=== PATIENT | male | born 1985 | race Caucasian/White ===

== ENCOUNTER 2020-02-07 07:17 | Day surgery (SDC) | payer OTHER ==
[2020-02-07] MEDS ORDERED: ONDANSETRON 4 MG/2 ML VIAL IVPUSH PRN (08:04)
--- NOTE | 2020-02-07 08:06 | HP ---
CHIEF COMPLAINT: Major depression PCP: Dr. Feliberto Alcala, [place] Primary Psychiatrist: Dr. Eris Munguia, [place] HISTORY OF PRESENT ILLNESS: This is a 34 year-old male with a PMH significant for depression, OCD, and seizure disorder. Patient first had ECT in April 2019. He presents today for ECT. 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 Smoking: vapes nicotine Alcohol: occasional Drugs: no Allergies codeine Adverse Reaction (Intermediate, Verified 02/04/20 11:51) Itching HOME MEDICATIONS: Home Medications Medication Instructions Recorded Buprenorphine HCl [Subutex -] 8 mg SL DAILY 02/04/20 Cholecalciferol (Vitamin D3) 2,000 unit PO DAILY 02/04/20 [Vitamin D3] Dextroamphetamine/Amphetamine 10 mg PO DAILY PRN 02/04/20 [Adderall 10 mg Tablet] Diazepam 30 mg PO HS 02/04/20 Diphenhydramine HCl [Benadryl -] 25 mg PO HS PRN 02/04/20 Lamotrigine [Lamictal Xr] 100 mg PO BID 02/04/20 Levomefolate/Algal Oil 1 each PO BID 02/04/20 [Deplin-Algal Oil 15 mg Capsule] Levothyroxine [Synthroid -] 88 mcg PO DAILY 02/04/20 [place] Carbonate [Lithobid] 300 mg PO DAILY 02/04/20 Mirtazapine 45 mg PO HS 02/04/20 Multivit-Mins/Iron/Folic/Lycop 1 each PO DAILY 02/04/20 [Centrum Men's Tablet] REVIEW OF SYSTEMS CONSTITUTIONAL: Absent: fever, chills, diaphoresis, generalized weakness, malaise, loss of appetite, weight change HEENT: Absent: rhinorrhea, nasal congestion, throat pain, throat swelling, difficulty swallowing, mouth swelling, ear pain, eye pain, visual changes CARDIOVASCULAR: Absent: chest pain, syncope, palpitations, irregular heart rate, lightheadedness, peripheral edema RESPIRATORY: Absent: cough, shortness of breath, dyspnea with exertion, orthopnea, wheezing, stridor, hemoptysis GASTROINTESTINAL: Absent: abdominal pain, abdominal distension, nausea, vomiting, diarrhea, constipation, melena, hematochezia GENITOURINARY: Absent: dysuria, frequency, urgency, hesitancy, hematuria, flank pain, genital pain MUSCULOSKELETAL: Absent: myalgia, arthralgia, joint swelling, back pain, neck pain SKIN: Absent: rash, itching, pallor HEMATOLOGIC/IMMUNOLOGIC: Absent: easy bleeding, easy bruising, lymphadenopathy, frequent infections ENDOCRINE: Absent: unexplained weight gain, unexplained weight loss, heat intolerance, cold intolerance NEUROLOGIC: Absent: headache, focal weakness or paresthesias, dizziness, unsteady gait, seizure, mental status changes, bladder or bowel incontinence PHYSICAL EXAMINATION Vital Signs Temperature 98.2 F 02/07/20 09:50 Pulse Rate 94 H 02/07/20 10:25 Respiratory Rate 16 02/07/20 10:25 Blood Pressure 129/92 02/07/20 10:25 O2 Sat by Pulse Oximetry (%) 96 02/07/20 10:20 GENERAL: Awake, alert, and fully oriented, in no acute distress. HEAD: Normal with no signs of trauma. EYES: Pupils equal, round and reactive to light, sclera anicteric, conjunctiva clear. LUNGS: Breath sounds equal, clear to auscultation bilaterally. No wheezes, and n o crackles. No accessory muscle use. HEART: Regular rate and rhythm, normal S1 and S2 ABDOMEN: Soft, nontender, not distended MUSCULOSKELETAL: Normal range of motion at all joints. No bony deformities or tenderness. No CVA tenderness. UPPER EXTREMITIES: 2+ pulses, warm, well-perfused. No cyanosis. No clubbing. No peripheral edema. LOWER EXTREMITIES: 2+ pulses, warm, well-perfused. No calf tenderness. No peripheral edema. NEUROLOGICAL: Cranial nerves II-XII intact. Normal speech. ASSESSMENT/PLAN: This is a 34 year-old male with a PMH significant for depression, OCD, and seizure disorder. Patient first had ECT in April 2019. He presents today for ECT. Cardiac --no cardiac history --Revised Cardiac Risk Index for Pre-Operative Risk: 0 points, 0.4% risk of major cardiac event Pulmonary --no pulmonary history Neurological --no neurological or neurosurgical history; no history of trauma Anesthesia --no reported problems with anesthesia ECT is a low risk procedure. The relative benefits of the planned procedure outweigh the relative risks for this patient at this time. Visit type - Emergency Visit Emergency Visit: No - New Patient This patient is new to me today: Yes Date on this admission: 02/07/20 - Critical Care Critical Care patient: No
[2020-02-07 08:14] VITALS: BMI 39.5
[2020-02-07] MEDS ORDERED: LACTATED RINGERS SOLUTION 1,000 ML IV SCH (08:15)
[2020-02-07] MEDS ORDERED: KETAMINE HCL 500 MG/10 ML VIAL ONE (08:45)
[2020-02-07] MEDS ORDERED: PROPOFOL 20 ML ONE ×2 (08:55)
[2020-02-07] MEDS ORDERED: SUCCINYLCHOLINE CHLORIDE 200 MG/10 ML SYRINGE ONE (08:56)
[2020-02-07] MEDS ORDERED: ONDANSETRON 4 MG/2 ML VIAL ONE (08:59)
[2020-02-07 11:41] VITALS: PULSE 94; TEMP 98.2
[2020-02-07 11:44] VITALS: BP 129/92
== END 2020-02-07 10:25 | disposition home or self-care (01) ==
LOC: FECT 07:17
PROVIDERS: ATTEND Psychiatry & Neurology Psychiatry
PROC: GZB4ZZZ Other Electroconvulsive Therapy (ICD-10-PCS; principal; 2020-02-07 11:00)
DX: F32.9 Major depressive disorder, single episode, unspecified (principal)
CPT/HCPCS: 90870; 94760

== ENCOUNTER 2020-02-08 07:25 | Day surgery (SDC) | payer OTHER ==
[2020-02-04 12:48] VITALS: BMI 38.7
--- OUTSIDE RECORDS SUMMARY | 2020-02-08 07:28 | XMS ---
:1985 Author Organization [facility] Support Name Relationship Address Phone UE Unavailable Unavailable Unavailable JENI ARROYO FATHER [address] [facility] [place] [address] Re-disclosure Warning The records that you are about to access may contain information from federally- assisted alcohol or drug abuse programs. If such information is present, then the following federally mandated warning applies: This information has been disclosed to you from records protected by federal confidentiality rules (42 CFR part 2). The federal rules prohibit you from making any further disclosure of this information unless further disclosure is expressly permitted by the written consent of the person to whom it pertains or as otherwise permitted by 42 CFR part 2. A general authorization for the release of medical or other information is NOT sufficient for this purpose. The Federal rules restrict any use of the information to criminally investigate or prosecute any alcohol or drug abuse patient.The records that you are about to access may contain highly sensitive health information, the redisclosure of which is protected by Article 27-F of the [facility] Public Health law. If you continue you may haveaccess to information: Regarding HIV / AIDS; Provided by facilities licensed or operated by the [facility] Office of Mental Health; or Provided by the [facility] Office for People With Developmental Disabilities. If such information is present, then the following [facility] mandated warning applies: This information has been disclosed to you from confidential records which are protected by state law. State law prohibits you from making any further disclosure of this information without the specific written consent of the person to whom it pertains, or as otherwise permitted by law. Any unauthorized further disclosure in violation of state law may result in a fine or skilled nursing sentence or both. A general authorization for the release of medical or other information is NOT sufficient authorization for further disclosure. Allergies and Adverse Reactions Type Description Substance Reaction Status Data Source(s ) NO KNOWN ALLERGIES [facility]IES [facility] Encounters Encounter Providers Location Date Indications Data Source(s ) Outpatient 01/31/2020 10:17:00 [facility] ([facility] Outpatient 01/30/2020 10:28:00 [facility] Outpatient 10/11/2019 12:08:00 [facility] Outpatient 10/10/2019 10:55:00 [facility] Outpatient 08/26/2019 06:57:00 [facility] Outpatient 06/16/2019 08:07:00 [facility]) Outpatient 06/15/2019 08:29:00 [facility]) Insurance Providers Payer name Policy type Policy ID Covered Covered libertarian's Policy P misti / Coverage libertarian ID relationship to [employer] ormation type ziegler MVP EXCHANGE [id number] PLAN
[2020-02-08] MEDS ORDERED: KETAMINE HCL 500 MG/10 ML VIAL ONE (08:44)
[2020-02-08] MEDS ORDERED: PROPOFOL 20 ML ONE (08:46)
[2020-02-08] MEDS ORDERED: ONDANSETRON 4 MG/2 ML VIAL ONE (08:46)
[2020-02-08] MEDS ORDERED: KETOROLAC TROMETHAMINE 30 MG/1 ML VIAL ONE (09:04)
[2020-02-08 09:36] VITALS: TEMP 98.1
[2020-02-08 10:06] VITALS: BP 126/74; PULSE 72
== END 2020-02-08 10:07 | disposition home or self-care (01) ==
LOC: FECT 07:25
PROVIDERS: ATTEND Psychiatry & Neurology Psychiatry
PROC: GZB4ZZZ Other Electroconvulsive Therapy (ICD-10-PCS; principal; 2020-02-08 10:00)
DX: F32.9 Major depressive disorder, single episode, unspecified (principal)
CPT/HCPCS: 90870; 94760; U0003

== ENCOUNTER 2020-02-14 08:21 | Emergency (ER) | payer OTHER ==
[2020-02-14] MEDS ORDERED: ONDANSETRON *ODT* 4 MG TABLET SL ONE (08:31)
[2020-02-14] MEDS ORDERED: MAG HYDROX/AL HYDROX/SIMETH 30 ML UNIT-DOSE CUP PO ONE (08:31)
--- NOTE | 2020-02-14 08:31 | PDOC ---
History of Present Illness - General Chief Complaint: Pain Stated Complaint: ABD PAIN Time Seen by Provider: 02/14/20 08:24 History Source: Patient Exam Limitations: No Limitations - History of Present Illness Initial Comments: 02/14/20 08:30 HPI 34 YOM PMH significant for depression, OCD, and seizure disorder presenting with abdominal gas pain beginning this morning when he woke up ~7AM. He states it feels like sharp, mid abdominal pain with gas. Nonradiating. Associated with nausea. no vomiting or diarrhea or BM changes or bloody stools, fevers or chills. He states he has similar type of pain regularly due to gas and he usually wakes up with abdominal discomfort, dizziness and headache, which he attributes to his medications. He currently states his symptoms are improving. He was preparing for ECT treatment at , but due to his c/o abdominal gas/pain, he was referred to the ED for evaluation. Denies fever, chills, chest pain, SOB, palpitation, dizziness, weakness, V, D, bladder and bowel problems, focal weakness/paresthesias, leg swelling/pain, rash. No sick contacts or travel. No new changes in medications. No suspicious food intake Allergies: codeine Past Medical History/PSH: as above Social history: Lives with family. +ecigs, occ ETOH. no drug use Meds: as documented in EMR Family history: noncontributory Review of systems Constitutional: no fevers or chills. No weakness HEENT: no headache or dizziness. No congestion. No visual/hearing disturbances. CVS: no cp or syncope. Resp: no sob. No cough. Gastrointestinal: +abdominal pain, nausea, No vomiting, no diarrhea. no bloody stools Genitourinary: no urinary sx, hematuria. no frequency or urgency. MUSCULOSKELETAL: No joint pain and swelling. No neck or back pain. SKIN: no redness or skin changes, no discharge, no rash. No wounds. Hematologic: no easy bruising/bleeding. NEUROLOGIC: No headache, dizziness, LOC or altered mental status. No weakness, numbness or tingling. Psych: no anxiety or depression Allergic/Immunologic: +med allergies All other systems reviewed and negative, or as documented in HPI. Physical exam General: Well appearing, awake and alert, NAD. HEENT: NCAT, PERRL, EOMI, clear conjunctiva, anicteric, moist mucus membranes, clear oropharynx, no oral lesions.. Neck: neck supple, FROM Resp: CTAB, normal and even respirations, no respiratory distress CVS: RRR, no murmurs, 2+ peripheral pulses throughout, no peripheral edema Abdomen: soft, nondistended, no rebound or guarding. +mild epigastric TTP. no mcburney's point tenderness, no Jovel's sign. Back: nontender, normal inspection and ROM MSK: no edema, GARAY x4, ROM intact. No clubbing or cyanosis. normal bulk and tone. Neuro: alert, oriented appropriately; no focal neurologic deficits Psych: Calm and cooperative Skin: warm and well perfused, cap refill <2 sec, normal color, no rash or skin discoloration. 02/14/20 08:34 Past History - Medical History Allergies/Adverse Reactions: Allergies Allergy/AdvReac Type Severity Reaction Status Date / Time codeine AdvReac Severe ITCHING/RED Verified 02/08/20 07:53 NESS Home Medications: Ambulatory Orders Buprenorphine HCl [Subutex -] 8 mg SL DAILY 02/04/20 Cholecalciferol (Vitamin D3) [Vitamin D3] 2,000 unit PO DAILY 02/04/20 Dextroamphetamine/Amphetamine [Adderall 10 mg Tablet] 10 mg PO DAILY PRN 02/04/20 Diazepam 30 mg PO HS 02/04/20 Diphenhydramine HCl [Benadryl -] 25 mg PO HS PRN 02/04/20 Lamotrigine [Lamictal Xr] 100 mg PO BID 02/04/20 Levomefolate/Algal Oil [Deplin-Algal Oil 15 mg Capsule] 1 each PO BID 02/04/20 Levothyroxine [Synthroid -] 88 mcg PO DAILY 02/04/20 [place] Carbonate [Lithobid] 300 mg PO DAILY 02/04/20 Mirtazapine 45 mg PO HS 02/04/20 Multivit-Mins/Iron/Folic/Lycop [Centrum Men's Tablet] 1 each PO DAILY 02/04/20 Cancer: No Cardiac Disorders: No Diabetes: No Seizures: No Thyroid Disease: Yes - Psycho-Social/Smoking History Smoking History: Former smoker Have you smoked in the past 12 months: No If you are a former smoker, when did you quit?: X 6 TO 7 YRS AGO Medical Decision Making - Medical Decision Making 02/14/20 08:39 Vital Signs Temp Pulse Resp BP Pulse Ox 98.9 F 96 H 20 141/96 98 02/14/20 08:22 02/14/20 08:22 02/14/20 08:22 02/14/20 08:22 02/14/20 08:22 vitals reviewed, wnl. no fever, no systemic sx. DDx abdominal pain: Renal colic, biliary colic, metabolic/electrolyte derangements. GERD, PUD, esophageal spasm, pancreatitis, hepatitis, constipation, colitis, gastroenteritis, cholecystitis, UTI, pyelonephritis, ileus, SBO, medication side effect, hernia, appendicitis, diverticulitis, mesenteric ischemia. msk strain, mesenteric adenitis, psoas abscess. - he has no lower quadrant tenderness. doubt appy or diverticulitis. no jovel's sign to suggest biliary or cholecystitis he has no peritoneal findings normal BM so unlikely obstruction or gastroenteritis. no e/o GIB. appears well, nontoxic, well hydrated. The patient appears comfortable and states that pain is improved. Given medications maalox and zofran, with clinical improvement. Tolerating oral intake. Vital signs reviewed and are normal. On repeat physical exam, the abdomen is soft and nontender, no suggestive findings for acute abdominal process at this time. The patient was advised that even though there is no evidence of a surgical emergency at this time, or early in a disease course and that if there is additional pain they are to return for repeat evaluation. The patient stated understanding of this, has decision making capacity and is discharged in stable condition. The patient was instructed to return to the emergency department for re-evaluation in 8-12 hours and sooner if they feel worse in any way. 02/14/20 08:40 02/14/20 08:46 Discharge - Discharge Information Problems reviewed: Yes Clinical Impression/Diagnosis: Abdominal pain, epigastric Condition: Improved Disposition: HOME - Admission No - Follow up/Referral Referrals: [facility] [place] [Provider Group] [facility] [Provider Group] - Patient Discharge Instructions Patient Printed Discharge Instructions: DI for Abdominal Pain-Adult Additional Instructions: Please return to the emergency department immediately should you feel worse in any way or have any of the following symptoms: increasing or different abdominal pain, persistent vomiting, fevers or shaking chills. Please return to the emergency department for a recheck in 8-12 hours if the pain is persistent or worse so we can re-evaluate you and ensure that you are not developing a problem that would require surgery or hospitalization. - Post Discharge Activity
--- OUTSIDE RECORDS SUMMARY | 2020-02-14 08:34 | XMS ---
:1985 Author Organization [facility] Support Name Relationship Address Phone UE Unavailable Unavailable Unavailable JENI ARROYO FATHER [address] [facility] [place] [address] Re-disclosure Warning The records that you are [...] is protected by Article 27-F of the [facility] Public Health law. If you continue you may haveaccess to information: Regarding HIV / AIDS; Provided by facilities licensed or operated by the [facility] Office of Mental Health; or Provided by the [facility] Office for People With Developmental Disabilities. If such information is present, then the following [facility] mandated warning applies: This information has [...] law may result in a fine or custodial sentence or both. A general authorization for the release of medical or other information is NOT sufficient authorization for further disclosure. Allergies and Adverse Reactions Type Description Substance Reaction Status Data Source(s ) NO KNOWN ALLERGIES [facility] Encounters Encounter Providers Location Date Indications Data [...] [employer] Inf ormation type ziegler MVP EXCHANGE [id number] PLAN Results ID Date Data Source [id number] 02/08/2020 09:56:00 AM EDT [facility] Name Value Range Interpretation Description Data Sup porting Code Source(s) Document(s ) SARS [facility] coronavirus 2 RNA This lab was ordered by YESENIA HAWKINS and reported by [facility]. ID Date Data Source [id number] 02/05/2020 11:50:00 AM EDT [facility] Name Value Range Interpretation Description Data Sup porting Code Source(s) Document(s ) SARS [facility] coronavirus 2 RNA This lab was ordered by YESENIA HAWKINS and reported by [facility]. Procedure
[2020-02-14] MEDS ORDERED: MAG HYDROX/AL HYDROX/SIMETH 30 ML UNIT-DOSE CUP ONE (08:37)
[2020-02-14] MEDS ORDERED: ONDANSETRON *ODT* 4 MG TABLET ONE (08:38)
[2020-02-14 08:44] VITALS: BP 141/96; PULSE 96; TEMP 98.9; BMI 38.7
== END 2020-02-14 08:44 | disposition home or self-care (01) ==
LOC: FER 08:21
DX: R10.13 Epigastric pain (principal)
CPT/HCPCS: 99283-25; Q0162

== ENCOUNTER → 2020-02-14 | Day surgery (SDC) | payer OTHER ==
[~2020-02-14] MED LIST: KETAMINE HCL 500 MG/10 ML VIAL ONE
--- OUTSIDE RECORDS SUMMARY | 2020-02-14 07:34 | XMS ---
:1985 Author Organization [facility] Support Name Relationship Address Phone UE Unavailable Unavailable Unavailable JENI ARROYO FATHER [address] [facility] [place] [address] Re-disclosure Warning The records that you are [...] is protected by Article 27-F of the [facility] Public Health law. If you continue you may haveaccess to information: Regarding HIV / AIDS; Provided by facilities licensed or operated by the [facility] Office of Mental Health; or Provided by the [facility] Office for People With Developmental Disabilities. If such information is present, then the following [facility] mandated warning applies: This information has been [...] law may result in a fine or correction sentence or both. A general authorization for the release of medical or other information is NOT sufficient authorization for further disclosure. Allergies and Adverse Reactions Type Description Substance Reaction Status Data Source(s ) NO KNOWN ALLERGIES [facility]IES [facility] En[facility] Encounter Providers Location Date Indications Data [...] name Policy type Policy ID Covered Covered alliance party's Policy P misti / Coverage alliance party ID relationship to [employer] ormation type ziegler MVP EXCHANGE [id number] PLAN Results ID Date Data Source [id number] 02/08/2020 09:56:00 AM EDT [facility] Name Value Range Interpretation Description Data Sup porting Code Source(s) Document(s ) SARS [facility] coronavirus 2 RNA This lab was ordered by YESENIA HAWKINS and reported by [facility]. ID Date Data Source [id number] 02/05/2020 11:50:00 AM EDT [facility] Name Value Range Interpretation Description Data Sup porting Code Source(s) Document(s ) SARS [facility] coronavirus 2 RNA This lab was ordered by YESENIA HAWKINS and reported by [facility]. Procedure
== END | disposition home or self-care (01) ==
LOC: FECT 07:31
PROVIDERS: ATTEND Psychiatry & Neurology Psychiatry
PROC: GZB4ZZZ Other Electroconvulsive Therapy (ICD-10-PCS; principal; 2020-02-14)
DX: Z53.8 Procedure and treatment not carried out for other reasons (principal); F33.2 Major depressive disorder, recurrent severe without psychotic features; R10.9 Unspecified abdominal pain; R11.0 Nausea

== ENCOUNTER 2020-02-15 06:39 | Day surgery (SDC) | payer OTHER ==
--- OUTSIDE RECORDS SUMMARY | 2020-02-15 06:43 | XMS ---
:1985 Author Organization [facility] Support Name Relationship Address Phone UE Unavailable Unavailable Unavailable JENI ARROYO FATHER [address] [facility] [place] [address] JENI [address]ROYO [address] Unavailable [facility] [place] [address] Re-disclosure Warning The records that you are [...] is protected by Article 27-F of the [facility] Public Health law. If you continue you may haveaccess to information: Regarding HIV / AIDS; Provided by facilities licensed or operated by the [facility] Office of Mental Health; or Provided by the [facility] Office for People With Developmental Disabilities. If such information is present, then the following [facility] mandated warning applies: This information has [...] law may result in a fine or assisted sentence or both. A general authorization for the release of medical or other information is NOT sufficient authorization for further disclosure. Allergies and Adverse Reactions Type Description Substance Reaction Status Data Source(s ) NO KNOWN ALLERGIES NO KNOWN ALLERGIES [facility] ([facility]) Encounters Encounter Providers Location Date Indications Data [...] name Policy type Policy ID Covered Covered green party's Policy P misti / Coverage green party ID relationship to [employer] ormation type z[employer]ler MVP EXCHANGE [id number] SP [id number] PLAN MVP EXCHANGE [id number] PLAN Results ID Date Data Source [id number] 02/08/2020 09:56:00 AM EDT [facility] Name Value Range Interpretation Description Data Sup porting Code Source(s) Document(s ) SARS [facility] coronavirus 2 RNA This lab was ordered by YESENIA ricks [facility] and reported by [facility]. ID Date Data Source [id number] 02/05/2020 11:50:00 AM EDT [facility] Name Value Range Interpretation Description Data Sup porting Code Source(s) Document(s ) SARS [facility] coronavirus 2 RNA This lab was ordered by YESENIA ricks [facility] and reported by [facility]. Procedure
[2020-02-15] MEDS ORDERED: LACTATED RINGERS SOLUTION 1,000 ML IV SCH (06:45)
[2020-02-15 07:30] VITALS: BMI 39.5
[2020-02-15] MEDS ORDERED: PROPOFOL 20 ML ONE (08:02)
[2020-02-15] MEDS ORDERED: SUCCINYLCHOLINE CHLORIDE 200 MG/10 ML SYRINGE ONE (08:02)
[2020-02-15] MEDS ORDERED: ONDANSETRON 4 MG/2 ML VIAL ONE (08:03)
[2020-02-15] MEDS ORDERED: KETOROLAC TROMETHAMINE 30 MG/1 ML VIAL ONE (08:03)
[2020-02-15] MEDS ORDERED: ROCURONIUM BROMIDE 50 MG/5 ML SYRINGE ONE (08:04)
[2020-02-15 08:56] VITALS: TEMP 98.4
[2020-02-15 09:52] VITALS: BP 112/79; PULSE 86
== END 2020-02-15 09:20 | disposition home or self-care (01) ==
LOC: FECT 06:39
PROVIDERS: ATTEND Psychiatry & Neurology Psychiatry
PROC: GZB4ZZZ Other Electroconvulsive Therapy (ICD-10-PCS; principal; 2020-02-15 08:30)
DX: F32.9 Major depressive disorder, single episode, unspecified (principal)
CPT/HCPCS: 90870; 94760; C9803; U0003

== ENCOUNTER 2020-02-18 07:46 | Day surgery (SDC) | payer OTHER ==
--- OUTSIDE RECORDS SUMMARY | 2020-02-18 07:50 | XMS ---
:1985 Author Organization [facility] Support Name Relationship Address Phone UE Unavailable Unavailable Unavailable JENI ARROYO FATHER [address] [place] [address] [address]ENI ARROYO Parent [address] Unavailable [facility] [address] Re-disclosure Warning The records that you are [...] is protected by Article 27-F of the [facility] Public Health law. If you continue you may haveaccess to information: Regarding HIV / AIDS; Provided by facilities licensed or operated by the [facility] Office of Mental Health; or Provided by the [facility] Office for People With Developmental Disabilities. If such information is present, then the following [facility] mandated warning applies: This information has [...] law may result in a fine or shelter sentence or both. A general authorization for [...] [employer] Inf ormation type z[employer]ler MVP EXCHANGE [id number] SP [id number] PLAN MVP EXCHANGE [id number] SP [id number] PLAN Results ID Date Data Source [id number] 02/12/2020 12:00:00 PM EDT [facility] Name Value Range Interpretation Description Data Sup porting Code Source(s) Document(s ) SARS [facility] coronavirus 2 RNA This lab was ordered by YESENIA ricks [facility] and reported by [facility]. ID Date Data Source [id number] 02/08/2020 09:56:00 AM EDT [facility] Name Value Range Interpretation Description Data Sup porting Code Source(s) Document(s ) SARS [facility] coronavirus 2 RNA This lab was ordered by [employer] ricks [facility] and reported by [facility]. ID Date Data Source [id number] 02/05/2020 11:50:00 AM EDT [facility] Name Value Range Interpretation Description Data Sup porting Code Source(s) Document(s ) SARS [facility] coronavirus 2 RNA This lab was ordered by [employer] ricks [facility] and reported by [facility]. Procedure
[2020-02-18 08:22] VITALS: BMI 40.3
[2020-02-18] MEDS ORDERED: ONDANSETRON 4 MG/2 ML VIAL IVPUSH PRN (09:19)
[2020-02-18] MEDS ORDERED: KETAMINE HCL 500 MG/10 ML VIAL ONE (09:27)
[2020-02-18] MEDS ORDERED: ROCURONIUM BROMIDE 50 MG/5 ML SYRINGE ONE (09:40)
[2020-02-18] MEDS ORDERED: LIDOCAINE HCL/PF 2% SDV 5ML VIAL ONE (09:50)
[2020-02-18] MEDS ORDERED: KETOROLAC TROMETHAMINE 30 MG/1 ML VIAL ONE (09:50)
[2020-02-18] MEDS ORDERED: PROPOFOL 20 ML ONE (09:50)
[2020-02-18] MEDS ORDERED: ONDANSETRON 4 MG/2 ML VIAL ONE (09:50)
[2020-02-18 10:44] VITALS: TEMP 98.4
[2020-02-18 10:56] VITALS: BP 128/80; PULSE 60
== END 2020-02-18 10:50 | disposition home or self-care (01) ==
LOC: FECT 07:46
PROVIDERS: ATTEND Psychiatry & Neurology Psychiatry
PROC: GZB4ZZZ Other Electroconvulsive Therapy (ICD-10-PCS; principal; 2020-02-18 08:30)
DX: F32.9 Major depressive disorder, single episode, unspecified (principal)
CPT/HCPCS: 90870; 94760; C9803; U0003

== ENCOUNTER 2020-03-20 07:21 | Day surgery (SDC) | payer OTHER ==
[2020-03-20 07:48] VITALS: BMI 39.2
[2020-03-20] MEDS ORDERED: KETAMINE HCL 500 MG/10 ML VIAL ONE (09:51)
[2020-03-20 11:10] VITALS: TEMP 98.1
[2020-03-20 11:12] VITALS: BP 135/78; PULSE 84
== END 2020-03-20 11:00 | disposition home or self-care (01) ==
LOC: FECT 07:21
PROVIDERS: ATTEND Psychiatry & Neurology Psychiatry
PROC: GZB4ZZZ Other Electroconvulsive Therapy (ICD-10-PCS; principal; 2020-03-20 08:00)
DX: F32.9 Major depressive disorder, single episode, unspecified (principal)
CPT/HCPCS: 90870; 94760; C9803; U0003

== ENCOUNTER 2020-04-14 07:05 | Day surgery (SDC) | payer OTHER ==
[2020-04-14 08:21] VITALS: BMI 39.1
[2020-04-14] MEDS ORDERED: KETAMINE HCL 500 MG/10 ML VIAL ONE (09:22)
[2020-04-14 11:31] VITALS: TEMP 97.9
[2020-04-14 11:33] VITALS: BP 134/85; PULSE 88
== END 2020-04-14 10:55 | disposition home or self-care (01) ==
LOC: FECT 07:05
PROVIDERS: ATTEND Psychiatry & Neurology Psychiatry
PROC: GZB4ZZZ Other Electroconvulsive Therapy (ICD-10-PCS; principal; 2020-04-14 09:00)
DX: F32.9 Major depressive disorder, single episode, unspecified (principal)
CPT/HCPCS: 90870; 94760; C9803; U0003

== ENCOUNTER 2020-04-17 08:33 | Day surgery (SDC) | payer OTHER ==
[2020-04-16 14:54] VITALS: BMI 39.1
[2020-04-17 09:01] VITALS: TEMP 97.9
[2020-04-17] MEDS ORDERED: KETAMINE HCL 500 MG/10 ML VIAL ONE (09:10)
[2020-04-17] MEDS ORDERED: PROPOFOL 20 ML ONE (09:30)
[2020-04-17 10:39] VITALS: BP 133/68; PULSE 69
== END 2020-04-17 10:28 | disposition home or self-care (01) ==
LOC: FECT 08:33
PROVIDERS: ATTEND Psychiatry & Neurology Psychiatry
PROC: GZB4ZZZ Other Electroconvulsive Therapy (ICD-10-PCS; principal; 2020-04-17 09:30)
DX: F32.9 Major depressive disorder, single episode, unspecified (principal)
CPT/HCPCS: 90870; 94760; C9803; U0003

== ENCOUNTER 2020-04-21 09:19 | Day surgery (SDC) | payer OTHER ==
[2020-04-17 17:39] VITALS: BMI 39.2
[2020-04-21] MEDS ORDERED: KETAMINE HCL 500 MG/10 ML VIAL ONE (10:07)
[2020-04-21] MEDS ORDERED: PROPOFOL 20 ML ONE (10:11)
[2020-04-21] MEDS ORDERED: SUCCINYLCHOLINE CHLORIDE 200 MG/10 ML SYRINGE ONE (10:11)
[2020-04-21 10:45] VITALS: TEMP 98
[2020-04-21 11:35] VITALS: BP 130/89; PULSE 89
== END 2020-04-21 11:30 | disposition home or self-care (01) ==
LOC: FECT 09:19
PROVIDERS: ATTEND Psychiatry & Neurology Psychiatry
PROC: GZB4ZZZ Other Electroconvulsive Therapy (ICD-10-PCS; principal; 2020-04-21 10:00)
DX: F32.9 Major depressive disorder, single episode, unspecified (principal)
CPT/HCPCS: 90870; 94760; C9803; U0003

== ENCOUNTER 2020-04-25 06:29 | Day surgery (SDC) | payer OTHER ==
[2020-04-24 12:48] VITALS: BMI 39.2
[2020-04-25] MEDS ORDERED: KETAMINE HCL 500 MG/10 ML VIAL ONE (07:23)
[2020-04-25 09:32] VITALS: TEMP 98.6
[2020-04-25 09:34] VITALS: BP 115/70; PULSE 89
== END 2020-04-25 09:05 | disposition home or self-care (01) ==
LOC: FECT 06:29
PROVIDERS: ATTEND Psychiatry & Neurology Psychiatry
PROC: GZB4ZZZ Other Electroconvulsive Therapy (ICD-10-PCS; principal; 2020-04-25 08:00)
DX: F32.9 Major depressive disorder, single episode, unspecified (principal)
CPT/HCPCS: 90870; 94760; C9803; U0003

== ENCOUNTER 2020-04-28 06:16 | Day surgery (SDC) | payer OTHER ==
[2020-04-25 17:11] VITALS: BMI 39.2
[2020-04-28] MEDS ORDERED: KETAMINE HCL 500 MG/10 ML VIAL ONE (08:17)
[2020-04-28 09:47] VITALS: BP 121/77; PULSE 87; TEMP 98
== END 2020-04-28 09:45 | disposition home or self-care (01) ==
LOC: FECT 06:16
PROVIDERS: ATTEND Psychiatry & Neurology Psychiatry
PROC: GZB4ZZZ Other Electroconvulsive Therapy (ICD-10-PCS; principal; 2020-04-28 08:00)
DX: F33.2 Major depressive disorder, recurrent severe without psychotic features (principal)
CPT/HCPCS: 90870; 94760; C9803; U0003

== ENCOUNTER 2020-05-01 06:56 | Day surgery (SDC) | payer OTHER ==
[2020-04-25 15:13] VITALS: BMI 39.2
[2020-05-01] MEDS ORDERED: LIDOCAINE 1% P/F 10 MG/ML VIAL ONE (08:23)
[2020-05-01] MEDS ORDERED: KETAMINE HCL 500 MG/10 ML VIAL ONE (08:23)
[2020-05-01] MEDS ORDERED: LIDOCAINE HCL/PF 2% SDV 5ML VIAL ONE (08:24)
[2020-05-01] MEDS ORDERED: SUCCINYLCHOLINE CHLORIDE 200 MG/10 ML SYRINGE ONE (08:24)
[2020-05-01] MEDS ORDERED: ONDANSETRON 4 MG/2 ML VIAL ONE (08:26)
[2020-05-01 09:16] VITALS: TEMP 97.4
[2020-05-01 09:36] VITALS: BP 128/84; PULSE 86
[2020-05-01] MEDS ORDERED: ONDANSETRON 4 MG/2 ML VIAL IVPUSH PRN (10:43)
[2020-05-01] MEDS ORDERED: LACTATED RINGERS SOLUTION 1,000 ML IV SCH (10:45)
== END 2020-05-01 09:39 | disposition home or self-care (01) ==
LOC: FECT 06:56
PROVIDERS: ATTEND Psychiatry & Neurology Psychiatry
PROC: GZB4ZZZ Other Electroconvulsive Therapy (ICD-10-PCS; principal; 2020-05-01 08:30)
DX: F32.9 Major depressive disorder, single episode, unspecified (principal)
CPT/HCPCS: 90870; 94760; C9803; U0003

== ENCOUNTER 2020-05-05 06:16 | Day surgery (SDC) | payer OTHER ==
[2020-04-29 11:12] VITALS: BMI 39.2
[2020-05-05] MEDS ORDERED: ACETAMINOPHEN 325 MG TABLET (FP) PO PRN (06:54)
[2020-05-05] MEDS ORDERED: PROMETHAZINE HCL 25 MG/1 ML VIAL IVPUSH PRN (06:54)
[2020-05-05] MEDS ORDERED: LACTATED RINGERS SOLUTION 1,000 ML IV SCH (07:00)
[2020-05-05] MEDS ORDERED: KETAMINE HCL 500 MG/10 ML VIAL ONE (07:41)
[2020-05-05] MEDS ORDERED: PROPOFOL 20 ML ONE (07:57)
[2020-05-05] MEDS ORDERED: SUCCINYLCHOLINE CHLORIDE 200 MG/10 ML SYRINGE ONE (07:57)
[2020-05-05] MEDS ORDERED: LIDOCAINE HCL/PF 2% SDV 5ML VIAL ONE (07:58)
[2020-05-05] MEDS ORDERED: ONDANSETRON 4 MG/2 ML VIAL ONE (07:58)
[2020-05-05 09:00] VITALS: BP 107/66; PULSE 89; TEMP 98.3
== END 2020-05-05 09:05 | disposition home or self-care (01) ==
LOC: FECT 06:16
PROVIDERS: ATTEND Psychiatry & Neurology Psychiatry
PROC: GZB4ZZZ Other Electroconvulsive Therapy (ICD-10-PCS; principal; 2020-05-05 08:30)
DX: F32.9 Major depressive disorder, single episode, unspecified (principal)
CPT/HCPCS: 90870; 94760

== ENCOUNTER 2020-05-12 08:15 | Day surgery (SDC) | payer OTHER ==
[2020-05-12 09:24] VITALS: BMI 39.5
[2020-05-12] MEDS ORDERED: KETAMINE HCL 500 MG/10 ML VIAL ONE (10:02)
[2020-05-12] MEDS ORDERED: GLYCOPYRROLATE 0.2 MG/1 ML VIAL ONE (10:33)
[2020-05-12 11:36] VITALS: TEMP 97.9
[2020-05-12 11:42] VITALS: BP 122/82; PULSE 87
== END 2020-05-12 12:00 | disposition home or self-care (01) ==
LOC: FECT 08:15
PROVIDERS: ATTEND Psychiatry & Neurology Psychiatry
PROC: GZB4ZZZ Other Electroconvulsive Therapy (ICD-10-PCS; principal; 2020-05-12 09:30)
DX: F32.9 Major depressive disorder, single episode, unspecified (principal)
CPT/HCPCS: 90870; 94760; C9803; U0003

== ENCOUNTER 2020-05-15 09:59 | Day surgery (SDC) | payer OTHER ==
[2020-05-15 11:12] VITALS: TEMP 98.4; BMI 39.8
[2020-05-15] MEDS ORDERED: KETAMINE HCL 500 MG/10 ML VIAL ONE (11:59)
[2020-05-15 14:07] VITALS: BP 127/88; PULSE 90
== END 2020-05-15 13:25 | disposition home or self-care (01) ==
LOC: FECT 09:59
PROVIDERS: ATTEND Psychiatry & Neurology Psychiatry
PROC: GZB4ZZZ Other Electroconvulsive Therapy (ICD-10-PCS; principal; 2020-05-15 11:30)
DX: F32.9 Major depressive disorder, single episode, unspecified (principal)
CPT/HCPCS: 90870; 94760; C9803; U0003

== ENCOUNTER 2020-05-22 06:13 | Day surgery (SDC) | payer OTHER ==
[2020-05-22 06:35] VITALS: BMI 39.9
[2020-05-22] MEDS ORDERED: PROPOFOL 20 ML ONE (07:47)
[2020-05-22] MEDS ORDERED: KETAMINE HCL 500 MG/10 ML VIAL ONE (07:48)
[2020-05-22] MEDS ORDERED: SUCCINYLCHOLINE CHLORIDE 200 MG/10 ML SYRINGE ONE (07:48)
[2020-05-22] MEDS ORDERED: DEXAMETHASONE SOD PHOSPHATE 4 MG/1 ML VIAL ONE (08:04)
[2020-05-22] MEDS ORDERED: ONDANSETRON 4 MG/2 ML VIAL ONE (08:04)
[2020-05-22 08:41] VITALS: TEMP 97.7
[2020-05-22 09:11] VITALS: BP 122/72; PULSE 81
== END 2020-05-22 09:15 | disposition home or self-care (01) ==
LOC: FECT 06:13
PROVIDERS: ATTEND Psychiatry & Neurology Psychiatry
PROC: GZB4ZZZ Other Electroconvulsive Therapy (ICD-10-PCS; principal; 2020-05-22 07:30)
DX: F32.9 Major depressive disorder, single episode, unspecified (principal)
CPT/HCPCS: 90870; 94760; C9803; U0003

== ENCOUNTER 2020-05-27 06:17 | Day surgery (SDC) | payer OTHER ==
[2020-05-22 14:52] VITALS: BMI 40.0
[2020-05-27] MEDS ORDERED: KETAMINE HCL 500 MG/10 ML VIAL ONE (07:28)
[2020-05-27 08:55] VITALS: TEMP 97.9
[2020-05-27 09:01] VITALS: BP 108/78; PULSE 88
== END 2020-05-27 09:05 | disposition home or self-care (01) ==
LOC: FECT 06:17
PROVIDERS: ATTEND Psychiatry & Neurology Psychiatry
PROC: GZB4ZZZ Other Electroconvulsive Therapy (ICD-10-PCS; principal; 2020-05-27 08:30)
DX: F32.9 Major depressive disorder, single episode, unspecified (principal)
CPT/HCPCS: 90870; 94760

== ENCOUNTER 2020-06-06 06:32 | Day surgery (SDC) | payer OTHER ==
[2020-06-06 07:11] VITALS: BMI 39.4
[2020-06-06] MEDS ORDERED: KETAMINE HCL 500 MG/10 ML VIAL ONE (07:28)
[2020-06-06] MEDS ORDERED: PROPOFOL 20 ML ONE (07:41)
[2020-06-06] MEDS ORDERED: SUCCINYLCHOLINE CHLORIDE 200 MG/10 ML SYRINGE ONE (07:41)
[2020-06-06 08:43] VITALS: PULSE 87; TEMP 98.1
[2020-06-06 09:26] VITALS: BP 124/75
== END 2020-06-06 09:05 | disposition home or self-care (01) ==
LOC: FECT 06:32
PROVIDERS: ATTEND Psychiatry & Neurology Psychiatry
PROC: GZB4ZZZ Other Electroconvulsive Therapy (ICD-10-PCS; principal; 2020-06-06 07:30)
DX: F32.9 Major depressive disorder, single episode, unspecified (principal)
CPT/HCPCS: 90870; 94760; C9803; U0003

== ENCOUNTER 2020-06-16 08:33 | Day surgery (SDC) | payer OTHER ==
[2020-06-16 10:01] VITALS: BMI 39.4
[2020-06-16] MEDS ORDERED: KETAMINE HCL 500 MG/10 ML VIAL ONE (10:48)
[2020-06-16 12:00] VITALS: TEMP 98.1
[2020-06-16 12:24] VITALS: BP 121/74; PULSE 81
== END 2020-06-16 12:40 | disposition home or self-care (01) ==
LOC: FECT 08:33
PROVIDERS: ATTEND Psychiatry & Neurology Psychiatry
PROC: GZB4ZZZ Other Electroconvulsive Therapy (ICD-10-PCS; principal; 2020-06-16 10:00)
DX: F32.9 Major depressive disorder, single episode, unspecified (principal)
CPT/HCPCS: 90870; 94760

== ENCOUNTER 2020-06-24 05:58 | Day surgery (SDC) | payer OTHER ==
[2020-06-24 07:26] VITALS: TEMP 97.9; BMI 39.9
[2020-06-24] MEDS ORDERED: KETAMINE HCL 500 MG/10 ML VIAL ONE (08:55)
[2020-06-24 10:14] VITALS: BP 115/79; PULSE 84
== END 2020-06-24 10:15 | disposition home or self-care (01) ==
LOC: FECT 05:58
PROVIDERS: ATTEND Psychiatry & Neurology Psychiatry
PROC: GZB4ZZZ Other Electroconvulsive Therapy (ICD-10-PCS; principal; 2020-06-24 08:00)
DX: F32.9 Major depressive disorder, single episode, unspecified (principal)
CPT/HCPCS: 90870; 94760

== ENCOUNTER 2020-07-03 06:01 | Day surgery (SDC) | payer OTHER ==
[2020-07-03 06:38] VITALS: TEMP 98; BMI 39.9
[2020-07-03] MEDS ORDERED: KETAMINE HCL 500 MG/10 ML VIAL ONE (06:59)
[2020-07-03] MEDS ORDERED: SUCCINYLCHOLINE CHLORIDE 200 MG/10 ML SYRINGE ONE (07:03)
[2020-07-03] MEDS ORDERED: KETOROLAC TROMETHAMINE 30 MG/1 ML VIAL ONE (07:15)
[2020-07-03] MEDS ORDERED: ONDANSETRON 4 MG/2 ML VIAL ONE (07:15)
[2020-07-03 08:32] VITALS: BP 135/77; PULSE 61
[2020-07-03] MEDS ORDERED: LACTATED RINGERS SOLUTION 1,000 ML IV SCH (10:30)
== END 2020-07-03 08:30 | disposition home or self-care (01) ==
LOC: FECT 06:01
PROVIDERS: ATTEND Psychiatry & Neurology Psychiatry
PROC: GZB4ZZZ Other Electroconvulsive Therapy (ICD-10-PCS; principal; 2020-07-03 09:00)
DX: F32.9 Major depressive disorder, single episode, unspecified (principal)
CPT/HCPCS: 90870; 94760; C9803; U0003

== ENCOUNTER 2020-07-07 07:29 | Day surgery (SDC) | payer OTHER ==
[2020-07-07 08:16] VITALS: BMI 39.9
[2020-07-07] MEDS ORDERED: KETAMINE HCL 500 MG/10 ML VIAL ONE (09:46)
[2020-07-07] MEDS ORDERED: KETOROLAC TROMETHAMINE 30 MG/1 ML VIAL ONE (10:06)
[2020-07-07] MEDS ORDERED: ONDANSETRON 4 MG/2 ML VIAL ONE (10:06)
[2020-07-07] MEDS ORDERED: DEXAMETHASONE SOD PHOSPHATE 4 MG/1 ML VIAL ONE (10:06)
[2020-07-07 10:51] VITALS: TEMP 98.2
[2020-07-07 11:28] VITALS: BP 132/82; PULSE 74
[2020-07-07] MEDS ORDERED: ACETAMINOPHEN 500 MG TABLET (FP) PO PRN (11:48)
[2020-07-07] MEDS ORDERED: LACTATED RINGERS SOLUTION 1,000 ML IV SCH (12:00)
== END 2020-07-07 11:33 | disposition home or self-care (01) ==
LOC: FECT 07:29
PROVIDERS: ATTEND Psychiatry & Neurology Psychiatry
PROC: GZB4ZZZ Other Electroconvulsive Therapy (ICD-10-PCS; principal; 2020-07-07 09:00)
DX: F32.9 Major depressive disorder, single episode, unspecified (principal)
CPT/HCPCS: 90870; 94760

== ENCOUNTER 2020-07-14 07:51 | Day surgery (SDC) | payer OTHER ==
[2020-07-14 08:19] VITALS: BMI 39.9
[2020-07-14] MEDS ORDERED: KETAMINE HCL 500 MG/10 ML VIAL ONE (08:54)
[2020-07-14 10:00] VITALS: TEMP 98.5
[2020-07-14 10:27] VITALS: BP 112/80; PULSE 80
== END 2020-07-14 10:30 | disposition home or self-care (01) ==
LOC: FECT 07:51
PROVIDERS: ATTEND Psychiatry & Neurology Psychiatry
PROC: GZB4ZZZ Other Electroconvulsive Therapy (ICD-10-PCS; principal; 2020-07-14 09:00)
DX: F32.9 Major depressive disorder, single episode, unspecified (principal)
CPT/HCPCS: 90870; 94760

== ENCOUNTER 2020-07-24 08:14 | Day surgery (SDC) | payer OTHER ==
[2020-07-21 14:39] VITALS: BMI 39.9
[2020-07-24] MEDS ORDERED: KETAMINE HCL 500 MG/10 ML VIAL ONE (09:54)
[2020-07-24 11:36] VITALS: TEMP 98.6
[2020-07-24 11:38] VITALS: BP 113/66; PULSE 88
== END 2020-07-24 11:20 | disposition home or self-care (01) ==
LOC: FECT 08:14
PROVIDERS: ATTEND Psychiatry & Neurology Psychiatry
PROC: GZB4ZZZ Other Electroconvulsive Therapy (ICD-10-PCS; principal; 2020-07-24 10:30)
DX: F31.9 Bipolar disorder, unspecified (principal)
CPT/HCPCS: 90870; 94760; C9803; U0003

== ENCOUNTER 2020-07-28 07:15 | Day surgery (SDC) | payer OTHER ==
[2020-07-24 15:37] VITALS: BMI 39.9
[2020-07-28] MEDS ORDERED: KETAMINE HCL 500 MG/10 ML VIAL ONE (08:46)
[2020-07-28 10:29] VITALS: BP 121/65; PULSE 84; TEMP 98.1
== END 2020-07-28 10:05 | disposition home or self-care (01) ==
LOC: FECT 07:15
PROVIDERS: ATTEND Psychiatry & Neurology Psychiatry
PROC: GZB4ZZZ Other Electroconvulsive Therapy (ICD-10-PCS; principal; 2020-07-28 09:00)
DX: F32.9 Major depressive disorder, single episode, unspecified (principal)
CPT/HCPCS: 90870; 94760

== ENCOUNTER 2020-08-04 06:47 | Day surgery (SDC) | payer OTHER ==
[2020-07-29 17:49] VITALS: BMI 39.9
[2020-08-04] MEDS ORDERED: KETAMINE HCL 500 MG/10 ML VIAL ONE (08:13)
[2020-08-04 09:23] VITALS: TEMP 98
[2020-08-04 09:41] VITALS: BP 124/84; PULSE 84
[2020-08-04] MEDS ORDERED: ACETAMINOPHEN 500 MG TABLET (FP) PO PRN (10:17)
[2020-08-04] MEDS ORDERED: PROMETHAZINE HCL 25 MG/1 ML VIAL IVPUSH PRN (10:17)
[2020-08-04] MEDS ORDERED: LACTATED RINGERS SOLUTION 1,000 ML IV SCH (10:30)
== END 2020-08-04 10:05 | disposition home or self-care (01) ==
LOC: FECT 06:47
PROVIDERS: ATTEND Psychiatry & Neurology Psychiatry
PROC: GZB4ZZZ Other Electroconvulsive Therapy (ICD-10-PCS; principal; 2020-08-04 09:00)
DX: F32.9 Major depressive disorder, single episode, unspecified (principal)
CPT/HCPCS: 90870; 94760

== ENCOUNTER 2020-08-21 08:15 | Day surgery (SDC) | payer OTHER ==
[2020-08-13 16:55] VITALS: BMI 39.9
[2020-08-21] MEDS ORDERED: KETAMINE HCL 500 MG/10 ML VIAL ONE (10:19)
[2020-08-21 10:54] VITALS: TEMP 98.6
[2020-08-21 11:56] VITALS: BP 112/65; PULSE 82
== END 2020-08-21 11:45 | disposition home or self-care (01) ==
LOC: FECT 08:15
PROVIDERS: ATTEND Psychiatry & Neurology Psychiatry
PROC: GZB4ZZZ Other Electroconvulsive Therapy (ICD-10-PCS; principal; 2020-08-21 09:00)
DX: F31.9 Bipolar disorder, unspecified (principal)
CPT/HCPCS: 90870; 94760

== ENCOUNTER 2020-09-08 08:35 | Day surgery (SDC) | payer OTHER ==
[2020-09-08] MEDS ORDERED: KETAMINE HCL 500 MG/10 ML VIAL ONE (10:22)
[2020-09-08 12:02] VITALS: BP 113/71; PULSE 73; TEMP 98.6
== END 2020-09-08 11:55 | disposition home or self-care (01) ==
LOC: FECT 08:35
PROVIDERS: ATTEND Psychiatry & Neurology Psychiatry
PROC: GZB4ZZZ Other Electroconvulsive Therapy (ICD-10-PCS; principal; 2020-09-08 10:00)
DX: F31.9 Bipolar disorder, unspecified (principal)
CPT/HCPCS: 90870; 94760

== ENCOUNTER 2020-10-16 10:12 | Day surgery (SDC) | payer OTHER ==
[2020-10-16 10:41] VITALS: BMI 37.8
[2020-10-16] MEDS ORDERED: KETAMINE HCL 500 MG/10 ML VIAL ONE (11:24)
[2020-10-16] MEDS ORDERED: SUCCINYLCHOLINE CHLORIDE 200 MG/10 ML SYRINGE ONE (11:34)
[2020-10-16] MEDS ORDERED: DEXAMETHASONE SOD PHOSPHATE 4 MG/1 ML VIAL ONE (11:34)
[2020-10-16] MEDS ORDERED: ONDANSETRON 4 MG/2 ML VIAL ONE (11:34)
[2020-10-16] MEDS ORDERED: KETOROLAC TROMETHAMINE 30 MG/1 ML VIAL ONE (11:34)
[2020-10-16] MEDS ORDERED: ONDANSETRON 4 MG/2 ML VIAL IVPUSH PRN (11:58)
[2020-10-16] MEDS ORDERED: LACTATED RINGERS SOLUTION 1,000 ML IV SCH (12:00)
[2020-10-16 12:21] VITALS: TEMP 98.1
[2020-10-16 14:19] VITALS: BP 145/74; PULSE 80
== END 2020-10-16 12:45 | disposition home or self-care (01) ==
LOC: FECT 10:12
PROVIDERS: ATTEND Psychiatry & Neurology Psychiatry
PROC: GZB4ZZZ Other Electroconvulsive Therapy (ICD-10-PCS; principal; 2020-10-16 11:30)
DX: F32.9 Major depressive disorder, single episode, unspecified (principal)
CPT/HCPCS: 90870; 94760

== ENCOUNTER 2020-11-03 07:08 | Day surgery (SDC) | payer OTHER ==
[2020-10-29 17:19] VITALS: BMI 37.8
[2020-11-03] MEDS ORDERED: KETAMINE HCL 500 MG/10 ML VIAL ONE (08:22)
[2020-11-03 08:48] VITALS: TEMP 98.7
[2020-11-03 09:54] VITALS: BP 130/79; PULSE 79
[2020-11-03] MEDS ORDERED: ACETAMINOPHEN 325 MG TABLET (FP) PO PRN (10:37)
[2020-11-03] MEDS ORDERED: PROMETHAZINE HCL 25 MG/1 ML VIAL IVPB PRN (10:37)
[2020-11-03] MEDS ORDERED: LACTATED RINGERS SOLUTION 1,000 ML IV SCH (10:45)
== END 2020-11-03 09:35 | disposition home or self-care (01) ==
LOC: FECT 07:08
PROVIDERS: ATTEND Psychiatry & Neurology Psychiatry
PROC: GZB4ZZZ Other Electroconvulsive Therapy (ICD-10-PCS; principal; 2020-11-03 09:00)
DX: F33.2 Major depressive disorder, recurrent severe without psychotic features (principal)
CPT/HCPCS: 90870; 94760

== ENCOUNTER 2020-11-06 08:26 | Day surgery (SDC) | payer OTHER ==
[2020-11-04 09:47] VITALS: BMI 37.8
[2020-11-06] MEDS ORDERED: KETAMINE HCL 500 MG/10 ML VIAL ONE (10:06)
[2020-11-06] MEDS ORDERED: hydrALAZINE HCL 20 MG/ML VIAL ONE (10:25)
[2020-11-06 10:52] VITALS: TEMP 98.2
[2020-11-06 11:34] VITALS: BP 129/74; PULSE 84
[2020-11-06] MEDS ORDERED: PROMETHAZINE HCL 25 MG/1 ML VIAL IVPUSH PRN (13:43)
[2020-11-06] MEDS ORDERED: ACETAMINOPHEN 325 MG TABLET (FP) PO PRN (13:43)
[2020-11-06] MEDS ORDERED: ONDANSETRON 4 MG/2 ML VIAL IVPUSH PRN (13:43)
[2020-11-06] MEDS ORDERED: LACTATED RINGERS SOLUTION 1,000 ML IV SCH (13:45)
== END 2020-11-06 11:35 | disposition home or self-care (01) ==
LOC: FECT 08:26
PROVIDERS: ATTEND Psychiatry & Neurology Psychiatry
PROC: GZB4ZZZ Other Electroconvulsive Therapy (ICD-10-PCS; principal; 2020-11-06 10:00)
DX: F33.2 Major depressive disorder, recurrent severe without psychotic features (principal)
CPT/HCPCS: 90870; 94760

== ENCOUNTER 2020-11-11 06:01 | Day surgery (SDC) | payer OTHER ==
[2020-11-07 11:48] VITALS: BMI 37.8
[2020-11-11] MEDS ORDERED: KETAMINE HCL 500 MG/10 ML VIAL ONE (07:24)
[2020-11-11 08:08] VITALS: TEMP 97.9
[2020-11-11 08:49] VITALS: BP 121/68; PULSE 78
== END 2020-11-11 08:51 | disposition home or self-care (01) ==
LOC: FECT 06:01
PROVIDERS: ATTEND Psychiatry & Neurology Psychiatry
PROC: GZB4ZZZ Other Electroconvulsive Therapy (ICD-10-PCS; principal; 2020-11-11 09:00)
DX: F32.9 Major depressive disorder, single episode, unspecified (principal)
CPT/HCPCS: 90870; 94760

== ENCOUNTER 2020-11-17 08:29 | Day surgery (SDC) | payer OTHER ==
[2020-11-17 09:13] VITALS: BMI 37.3
[2020-11-17] MEDS ORDERED: KETAMINE HCL 500 MG/10 ML VIAL ONE (09:38)
[2020-11-17 10:47] VITALS: TEMP 98.2
[2020-11-17 11:22] VITALS: BP 130/77; PULSE 81
== END 2020-11-17 11:10 | disposition home or self-care (01) ==
LOC: FECT 08:29
PROVIDERS: ATTEND Psychiatry & Neurology Psychiatry
PROC: GZB4ZZZ Other Electroconvulsive Therapy (ICD-10-PCS; principal; 2020-11-17 10:00)
DX: F32.9 Major depressive disorder, single episode, unspecified (principal)
CPT/HCPCS: 90870; 94760

== ENCOUNTER 2020-11-24 08:00 | Day surgery (SDC) | payer OTHER ==
[2020-11-20 07:36] VITALS: BMI 37.8
[2020-11-24] MEDS ORDERED: KETAMINE HCL 500 MG/10 ML VIAL ONE (09:28)
[2020-11-24 10:03] VITALS: TEMP 98.3
[2020-11-24 10:41] VITALS: BP 118/79; PULSE 80
== END 2020-11-24 10:35 | disposition home or self-care (01) ==
LOC: FECT 08:00
PROVIDERS: ATTEND Psychiatry & Neurology Psychiatry
PROC: GZB4ZZZ Other Electroconvulsive Therapy (ICD-10-PCS; principal; 2020-11-24 10:00)
DX: F32.9 Major depressive disorder, single episode, unspecified (principal)
CPT/HCPCS: 90870; 94760

== ENCOUNTER 2020-11-27 09:43 | Day surgery (SDC) | payer OTHER ==
[2020-11-26 12:18] VITALS: BMI 37.8
[2020-11-27] MEDS ORDERED: KETAMINE HCL 500 MG/10 ML VIAL ONE (11:04)
[2020-11-27 12:16] VITALS: TEMP 98.6
[2020-11-27 12:40] VITALS: BP 130/70; PULSE 86
== END 2020-11-27 12:25 | disposition home or self-care (01) ==
LOC: FECT 09:43
PROVIDERS: ATTEND Psychiatry & Neurology Psychiatry
PROC: GZB4ZZZ Other Electroconvulsive Therapy (ICD-10-PCS; principal; 2020-11-27 11:00)
DX: F33.2 Major depressive disorder, recurrent severe without psychotic features (principal)
CPT/HCPCS: 90870; 94760

== ENCOUNTER 2020-12-01 08:03 | Day surgery (SDC) | payer OTHER ==
[2020-11-25 16:12] VITALS: BMI 37.8
[2020-12-01] MEDS ORDERED: KETAMINE HCL 500 MG/10 ML VIAL ONE (10:21)
[2020-12-01 11:54] VITALS: TEMP 98.2
[2020-12-01 12:03] VITALS: BP 120/82; PULSE 88
== END 2020-12-01 11:52 | disposition home or self-care (01) ==
LOC: FECT 08:03
PROVIDERS: ATTEND Psychiatry & Neurology Psychiatry
PROC: GZB4ZZZ Other Electroconvulsive Therapy (ICD-10-PCS; principal; 2020-12-01 10:00)
DX: F32.9 Major depressive disorder, single episode, unspecified (principal)
CPT/HCPCS: 90870; 94760

== ENCOUNTER 2020-12-05 06:29 | Day surgery (SDC) | payer OTHER ==
[2020-12-01 09:53] VITALS: BMI 37.8
[2020-12-05] MEDS ORDERED: KETAMINE HCL 500 MG/10 ML VIAL ONE (08:35)
[2020-12-05 09:06] VITALS: TEMP 98.4
[2020-12-05 09:56] VITALS: BP 114/69; PULSE 74
== END 2020-12-05 09:55 | disposition home or self-care (01) ==
LOC: FECT 06:29
PROVIDERS: ATTEND Psychiatry & Neurology Psychiatry
PROC: GZB4ZZZ Other Electroconvulsive Therapy (ICD-10-PCS; principal; 2020-12-05 08:30)
DX: F32.9 Major depressive disorder, single episode, unspecified (principal)
CPT/HCPCS: 90870; 94760

== ENCOUNTER 2020-12-19 09:03 | Day surgery (SDC) | payer OTHER ==
[2020-12-17 15:16] VITALS: BMI 37.8
== END 2020-12-19 09:30 | disposition home or self-care (01) ==
LOC: FECT 09:03
PROVIDERS: ATTEND Psychiatry & Neurology Psychiatry
PROC: GZB4ZZZ Other Electroconvulsive Therapy (ICD-10-PCS; principal; 2020-12-19)
DX: F32.9 Major depressive disorder, single episode, unspecified (principal); Z53.8 Procedure and treatment not carried out for other reasons

== ENCOUNTER 2021-04-27 10:31 | Day surgery (SDC) | payer OTHER ==
[2021-04-27 11:10] VITALS: BMI 37.5
[2021-04-27 11:46] LABS: ALBUMIN 4.4 g/dl (3.4-5.0); BILIRUBIN,TOTAL 0.3 mg/dl (0.2-1); CALCIUM 9.3 mg/dl (8.5-10); TOT PROT 6.5 g/dl (6.4-8.2)
[2021-04-27 12:45] LABS: HEMATOCRIT 43.6 % (35.4-49); HEMOGLOBIN 15.7 GM/dL (11.7-16.9); MCH 30.4 pg (25.7-33.7); MCHC 35.9 g/dl (32.0-35.9); MEAN CELL VOLUME 84.9 fl (80-96); MEAN PLT VOLUME 7.6 fl (7.5-11.1); PLATELET COUNT 275 10^3/uL (134-434); RBC 5.14 M/mm3 (4.00-5.60); RDW 12.6 % (11.9-15.9); WHITE BLOOD COUNT 5.7 K/mm3 (4.0-10.0)
[2021-04-27 13:33] VITALS: BP 129/86; PULSE 86; TEMP 98.7
== END 2021-04-27 13:25 | disposition home or self-care (01) ==
LOC: FECT 10:31
PROVIDERS: ATTEND Psychiatry & Neurology Psychiatry
PROC: GZB4ZZZ Other Electroconvulsive Therapy (ICD-10-PCS; principal; 2021-04-27)
DX: F33.2 Major depressive disorder, recurrent severe without psychotic features (principal)
CPT/HCPCS: 36415; 80053; 85027; 90870; 93005; 93010; 94760; C9803; U0003; U0005

== ENCOUNTER 2021-04-29 06:48 | Day surgery (SDC) | payer OTHER ==
[2021-04-22 16:44] VITALS: BMI 36.3
[2021-04-29] MEDS ORDERED: KETAMINE HCL 500 MG/10 ML VIAL ONE (08:30)
[2021-04-29] MEDS ORDERED: PROPOFOL 20 ML ONE (08:37)
[2021-04-29] MEDS ORDERED: SUCCINYLCHOLINE CHLORIDE 200 MG/10 ML SYRINGE ONE (08:38)
[2021-04-29 09:43] VITALS: TEMP 98
[2021-04-29 09:44] VITALS: BP 124/82; PULSE 88
== END 2021-04-29 09:44 | disposition home or self-care (01) ==
LOC: FECT 06:48
PROVIDERS: ATTEND Psychiatry & Neurology Psychiatry
PROC: GZB4ZZZ Other Electroconvulsive Therapy (ICD-10-PCS; principal; 2021-04-29 08:30)
DX: F32.9 Major depressive disorder, single episode, unspecified (principal)
CPT/HCPCS: 90870; 94760; C9803; U0003; U0005

== ENCOUNTER 2021-05-04 07:57 | Day surgery (SDC) | payer OTHER ==
[2021-05-04 08:39] VITALS: BMI 36.3
[2021-05-04] MEDS ORDERED: KETAMINE HCL 500 MG/10 ML VIAL ONE (09:26)
[2021-05-04 10:15] VITALS: BP 122/73; PULSE 87; TEMP 98.6
== END 2021-05-04 10:30 | disposition home or self-care (01) ==
LOC: FECT 07:57
PROVIDERS: ATTEND Psychiatry & Neurology Psychiatry
PROC: GZB4ZZZ Other Electroconvulsive Therapy (ICD-10-PCS; principal; 2021-05-04 09:30)
DX: F33.2 Major depressive disorder, recurrent severe without psychotic features (principal)
CPT/HCPCS: 90870; 94760; C9803; U0003; U0005

== ENCOUNTER 2021-05-07 06:30 | Day surgery (SDC) | payer OTHER ==
[2021-04-29 08:50] VITALS: BMI 36.3
[2021-05-07] MEDS ORDERED: ONDANSETRON 4 MG/2 ML VIAL ONE (08:38)
[2021-05-07] MEDS ORDERED: KETOROLAC TROMETHAMINE 30 MG/1 ML VIAL ONE (08:38)
[2021-05-07] MEDS ORDERED: DEXAMETHASONE SOD PHOSPHATE 4 MG/1 ML VIAL ONE (08:38)
[2021-05-07] MEDS ORDERED: SUCCINYLCHOLINE CHLORIDE 200 MG/10 ML SYRINGE ONE (08:39)
[2021-05-07] MEDS ORDERED: PROPOFOL 20 ML ONE (08:39)
[2021-05-07 09:42] VITALS: TEMP 98
[2021-05-07 09:51] VITALS: BP 120/67; PULSE 88
[2021-05-08 20:06] LABS: SARS-CoV-2 NAA Not Detected (Not Detected)
== END 2021-05-07 09:55 | disposition home or self-care (01) ==
LOC: FECT 06:30
PROVIDERS: ATTEND Psychiatry & Neurology Psychiatry
PROC: GZB4ZZZ Other Electroconvulsive Therapy (ICD-10-PCS; principal; 2021-05-07 08:30)
DX: F32.9 Major depressive disorder, single episode, unspecified (principal)
CPT/HCPCS: 90870; 94760; C9803; U0003; U0005

== ENCOUNTER 2021-05-11 06:57 | Day surgery (SDC) | payer OTHER ==
[2021-05-04 15:40] VITALS: BMI 37.8
[2021-05-11] MEDS ORDERED: PROPOFOL 20 ML ONE (07:57)
[2021-05-11] MEDS ORDERED: SUCCINYLCHOLINE CHLORIDE 200 MG/10 ML SYRINGE ONE (07:57)
[2021-05-11] MEDS ORDERED: KETAMINE HCL 200 MG/20 ML VIAL ONE (09:26)
[2021-05-11 10:03] VITALS: PULSE 89
[2021-05-11 10:17] VITALS: BP 133/78; TEMP 98.4
[2021-05-12 14:13] LABS: SARS-CoV-2 NAA Not Detected (Not Detected)
== END 2021-05-11 10:35 | disposition home or self-care (01) ==
LOC: FECT 06:57
PROVIDERS: ATTEND Psychiatry & Neurology Psychiatry
PROC: GZB4ZZZ Other Electroconvulsive Therapy (ICD-10-PCS; principal; 2021-05-11 09:00)
DX: F31.9 Bipolar disorder, unspecified (principal)
CPT/HCPCS: 90870; 94760; C9803; U0003; U0005

== ENCOUNTER 2021-05-14 06:04 | Day surgery (SDC) | payer OTHER ==
[2021-05-06 07:28] VITALS: BMI 36.3
[2021-05-14] MEDS ORDERED: KETAMINE HCL 500 MG/10 ML VIAL ONE (07:08)
[2021-05-14 08:21] VITALS: TEMP 98
[2021-05-14 08:43] VITALS: BP 114/66; PULSE 77
[2021-05-15 15:08] LABS: SARS-CoV-2 NAA Not Detected (Not Detected)
== END 2021-05-14 08:40 | disposition home or self-care (01) ==
LOC: FECT 06:04
PROVIDERS: ATTEND Psychiatry & Neurology Psychiatry
PROC: GZB4ZZZ Other Electroconvulsive Therapy (ICD-10-PCS; principal; 2021-05-14 07:30)
DX: F32.9 Major depressive disorder, single episode, unspecified (principal)
CPT/HCPCS: 90870; 94760; C9803; U0003; U0005

== ENCOUNTER 2021-05-18 06:15 | Day surgery (SDC) | payer OTHER ==
[2021-05-06 07:35] VITALS: BMI 36.3
[2021-05-18] MEDS ORDERED: KETAMINE HCL 500 MG/10 ML VIAL ONE (07:39)
[2021-05-18 08:49] VITALS: TEMP 98
[2021-05-18 09:09] VITALS: BP 116/71; PULSE 81
[2021-05-19 14:08] LABS: SARS-CoV-2 NAA Not Detected (Not Detected)
== END 2021-05-18 09:10 | disposition home or self-care (01) ==
LOC: FECT 06:15
PROVIDERS: ATTEND Psychiatry & Neurology Psychiatry
PROC: GZB4ZZZ Other Electroconvulsive Therapy (ICD-10-PCS; principal; 2021-05-18 08:00)
DX: F33.2 Major depressive disorder, recurrent severe without psychotic features (principal)
CPT/HCPCS: 90870; 94760; C9803-CS; U0003; U0005

== ENCOUNTER 2021-05-22 05:57 | Day surgery (SDC) | payer OTHER ==
[2021-05-13 17:28] VITALS: BMI 36.3
[2021-05-22] MEDS ORDERED: KETAMINE HCL 500 MG/10 ML VIAL ONE (07:20)
[2021-05-22] MEDS ORDERED: GLYCOPYRROLATE 0.2 MG/1 ML VIAL ONE (07:27)
[2021-05-22 07:56] VITALS: TEMP 98.2
[2021-05-22 08:28] VITALS: BP 128/82; PULSE 94
[2021-05-22] MEDS ORDERED: ONDANSETRON 4 MG/2 ML VIAL IVPUSH PRN (09:54)
[2021-05-22] MEDS ORDERED: ACETAMINOPHEN 500 MG TABLET (FP) PO PRN (09:54)
[2021-05-22] MEDS ORDERED: PROMETHAZINE HCL 25 MG/1 ML VIAL IVPUSH PRN (09:54)
[2021-05-22] MEDS ORDERED: LACTATED RINGERS SOLUTION 1,000 ML IV SCH (10:00)
== END 2021-05-22 08:25 | disposition home or self-care (01) ==
LOC: FECT 05:57
PROVIDERS: ATTEND Psychiatry & Neurology Psychiatry
PROC: GZB4ZZZ Other Electroconvulsive Therapy (ICD-10-PCS; principal; 2021-05-22 07:30)
DX: F32.9 Major depressive disorder, single episode, unspecified (principal)
CPT/HCPCS: 90870; 94760

== ENCOUNTER 2021-06-26 05:53 | Day surgery (SDC) | payer OTHER ==
[2021-05-12 15:09] VITALS: BMI 37.8
[2021-06-26] MEDS ORDERED: KETAMINE HCL 500 MG/10 ML VIAL ONE (07:34)
[2021-06-26 08:47] VITALS: BP 116/67; PULSE 84; TEMP 97.9
== END 2021-06-26 08:47 | disposition home or self-care (01) ==
LOC: FECT 05:53
PROVIDERS: ATTEND Psychiatry & Neurology Psychiatry
PROC: GZB4ZZZ Other Electroconvulsive Therapy (ICD-10-PCS; principal; 2021-06-26 07:42)
DX: F32.9 Major depressive disorder, single episode, unspecified (principal)
CPT/HCPCS: 90870; 94760

== ENCOUNTER 2021-09-24 09:43 | Day surgery (SDC) | payer OTHER ==
[2021-09-22 12:27] VITALS: BMI 41.3
[2021-09-24] MEDS ORDERED: KETAMINE HCL 500 MG/10 ML VIAL ONE (10:29)
[2021-09-24 12:05] VITALS: TEMP 98.2
[2021-09-24 12:06] VITALS: BP 118/66; PULSE 86
== END 2021-09-24 12:07 | disposition home or self-care (01) ==
LOC: FECT 09:43
PROVIDERS: ATTEND Psychiatry & Neurology Psychiatry
PROC: GZB4ZZZ Other Electroconvulsive Therapy (ICD-10-PCS; principal; 2021-09-24 11:00)
DX: F32.9 Major depressive disorder, single episode, unspecified (principal)
CPT/HCPCS: 90870; 94760

== ENCOUNTER 2021-09-25 08:04 | Day surgery (SDC) | payer OTHER ==
[2021-09-24 16:49] VITALS: BMI 41.3
[2021-09-25 08:58] VITALS: TEMP 97.8
[2021-09-25] MEDS ORDERED: KETAMINE HCL 500 MG/10 ML VIAL ONE (09:51)
[2021-09-25] MEDS ORDERED: PROPOFOL 20 ML ONE ×2 (10:06→10:12)
[2021-09-25 13:30] VITALS: BP 110/65; PULSE 72
[2021-09-26 19:07] LABS: SARS-CoV-2 NAA Not Detected (Not Detected)
== END 2021-09-25 11:44 | disposition home or self-care (01) ==
LOC: FECT 08:04
PROVIDERS: ATTEND Psychiatry & Neurology Psychiatry
PROC: GZB4ZZZ Other Electroconvulsive Therapy (ICD-10-PCS; principal; 2021-09-25 10:19)
DX: F32.9 Major depressive disorder, single episode, unspecified (principal)
CPT/HCPCS: 90870; 94760; C9803-CS; U0003; U0005

== ENCOUNTER → 2021-09-29 | Day surgery (SDC) | payer OTHER ==
[2021-09-28 16:24] VITALS: BMI 41.3
[~2021-09-29] MED LIST changes: +LACTATED RINGERS SOLUTION 1,000 ML IV SCH; +ONDANSETRON 4 MG/2 ML VIAL IVPUSH PRN; +PROPOFOL 20 ML ONE; +SUCCINYLCHOLINE CHLORIDE 200 MG/10 ML SYRINGE ONE
[2021-09-30 15:08] LABS: SARS-CoV-2 NAA Not Detected (Not Detected)
[2021-10-02 08:45] VITALS: TEMP 98.9
[2021-10-02 08:52] VITALS: BP 108/73; PULSE 75
== END | disposition home or self-care (01) ==
LOC: FECT 07:08
PROVIDERS: ATTEND Psychiatry & Neurology Psychiatry
PROC: GZB4ZZZ Other Electroconvulsive Therapy (ICD-10-PCS; principal; 2021-09-29 08:37)
DX: F32.9 Major depressive disorder, single episode, unspecified (principal)
CPT/HCPCS: 90870; 94760; C9803-CS; U0003; U0005

== ENCOUNTER 2021-10-01 06:06 | Day surgery (SDC) | payer OTHER ==
[2021-09-28 16:20] VITALS: BMI 41.3
[2021-10-01 08:03] VITALS: TEMP 97.8
[2021-10-01 08:40] VITALS: BP 114/71; PULSE 71
== END 2021-10-01 08:42 | disposition home or self-care (01) ==
LOC: FECT 06:06
PROVIDERS: ATTEND Psychiatry & Neurology Psychiatry
PROC: GZB4ZZZ Other Electroconvulsive Therapy (ICD-10-PCS; principal; 2021-10-01 07:41)
DX: F31.9 Bipolar disorder, unspecified (principal)
CPT/HCPCS: 90870; 94760

== ENCOUNTER 2021-10-02 06:27 | Day surgery (SDC) | payer OTHER ==
[2021-10-02 07:04] VITALS: BMI 41.3
[2021-10-02 08:54] VITALS: TEMP 98
[2021-10-02 09:19] VITALS: BP 108/64; PULSE 72
== END 2021-10-02 09:21 | disposition home or self-care (01) ==
LOC: FECT 06:27
PROVIDERS: ATTEND Psychiatry & Neurology Psychiatry
PROC: GZB4ZZZ Other Electroconvulsive Therapy (ICD-10-PCS; principal; 2021-10-02 08:06)
DX: F31.9 Bipolar disorder, unspecified (principal)
CPT/HCPCS: 90870; 94760; C9803-CS; U0003; U0005

== ENCOUNTER 2021-10-06 06:15 | Day surgery (SDC) | payer OTHER ==
[2021-09-30 14:20] VITALS: BMI 41.3
[2021-10-06 09:01] VITALS: TEMP 98.2
[2021-10-06 09:21] VITALS: BP 121/72; PULSE 81
== END 2021-10-06 09:24 | disposition home or self-care (01) ==
LOC: FECT 06:15
PROVIDERS: ATTEND Psychiatry & Neurology Psychiatry
PROC: GZB4ZZZ Other Electroconvulsive Therapy (ICD-10-PCS; principal; 2021-10-06 08:10)
DX: F31.62 Bipolar disorder, current episode mixed, moderate (principal)
CPT/HCPCS: 90870; 94760; C9803-CS; U0003; U0005

== ENCOUNTER 2021-10-09 06:12 | Day surgery (SDC) | payer OTHER ==
[2021-10-02 14:07] VITALS: BMI 41.3
[2021-10-09] MEDS ORDERED: KETAMINE HCL 500 MG/10 ML VIAL ONE (07:37)
[2021-10-09 08:26] VITALS: TEMP 98.4
[2021-10-09 09:12] VITALS: BP 133/73; PULSE 89
[2021-10-09] MEDS ORDERED: ONDANSETRON 4 MG/2 ML VIAL IVPUSH PRN (09:58)
== END 2021-10-09 09:10 | disposition home or self-care (01) ==
LOC: FECT 06:12
PROVIDERS: ATTEND Psychiatry & Neurology Psychiatry
PROC: GZB4ZZZ Other Electroconvulsive Therapy (ICD-10-PCS; principal; 2021-10-09 08:02)
DX: F31.62 Bipolar disorder, current episode mixed, moderate (principal)
CPT/HCPCS: 90870; 94760; C9803-CS; U0003; U0005

== ENCOUNTER 2021-10-13 06:15 | Day surgery (SDC) | payer OTHER ==
[2021-10-02 14:03] VITALS: BMI 41.3
[2021-10-13] MEDS ORDERED: KETAMINE HCL 500 MG/10 ML VIAL ONE (07:50)
[2021-10-13 08:50] VITALS: TEMP 98.2
[2021-10-13 08:51] VITALS: BP 122/80; PULSE 79
== END 2021-10-13 08:54 | disposition home or self-care (01) ==
LOC: FECT 06:15
PROVIDERS: ATTEND Psychiatry & Neurology Psychiatry
PROC: GZB4ZZZ Other Electroconvulsive Therapy (ICD-10-PCS; principal; 2021-10-13 07:58)
DX: F31.9 Bipolar disorder, unspecified (principal)
CPT/HCPCS: 90870; 94760; C9803-CS; U0003; U0005

== ENCOUNTER 2021-10-15 06:09 | Day surgery (SDC) | payer OTHER ==
[2021-10-15 06:38] VITALS: BMI 40.8
[2021-10-15 09:04] VITALS: PULSE 86; TEMP 97.6
[2021-10-15 09:08] VITALS: BP 126/75
== END 2021-10-15 08:40 | disposition home or self-care (01) ==
LOC: FECT 06:09
PROVIDERS: ATTEND Psychiatry & Neurology Psychiatry
PROC: GZB4ZZZ Other Electroconvulsive Therapy (ICD-10-PCS; principal; 2021-10-15 07:40)
DX: F31.9 Bipolar disorder, unspecified (principal)
CPT/HCPCS: 90870; 94760

== ENCOUNTER 2021-10-16 06:04 | Day surgery (SDC) | payer OTHER ==
[2021-10-13 17:10] VITALS: BMI 41.3
[2021-10-16 08:52] VITALS: TEMP 97.9
[2021-10-16 09:13] VITALS: BP 121/69; PULSE 81
== END 2021-10-16 09:15 | disposition home or self-care (01) ==
LOC: FECT 06:04
PROVIDERS: ATTEND Psychiatry & Neurology Psychiatry
PROC: GZB4ZZZ Other Electroconvulsive Therapy (ICD-10-PCS; principal; 2021-10-16 08:00)
DX: F31.9 Bipolar disorder, unspecified (principal)
CPT/HCPCS: 90870; 94760; C9803-CS; U0003; U0005

== ENCOUNTER 2021-10-20 06:00 | Day surgery (SDC) | payer OTHER ==
[2021-10-15 15:50] VITALS: BMI 40.8
[2021-10-20] MEDS ORDERED: KETAMINE HCL 500 MG/10 ML VIAL ONE (07:24)
[2021-10-20 08:38] VITALS: TEMP 97.8
[2021-10-20 08:50] VITALS: BP 126/72; PULSE 79
== END 2021-10-20 08:53 | disposition home or self-care (01) ==
LOC: FECT 06:00
PROVIDERS: ATTEND Psychiatry & Neurology Psychiatry
PROC: GZB4ZZZ Other Electroconvulsive Therapy (ICD-10-PCS; principal; 2021-10-20 07:30)
DX: F31.62 Bipolar disorder, current episode mixed, moderate (principal)
CPT/HCPCS: 90870; 94760; C9803-CS; U0003; U0005

== ENCOUNTER 2021-10-22 06:12 | Day surgery (SDC) | payer OTHER ==
[2021-10-19 08:56] VITALS: BMI 41.3
[2021-10-22 08:27] LABS: ALBUMIN 4.7 g/dl (3.4-5.0); BILIRUBIN,TOTAL 0.6 mg/dl (0.2-1); CALCIUM 9.6 mg/dl (8.5-10); CREATININE 1.1 mg/dl (0.55-1.3); TOT PROT 7.1 g/dl (6.4-8.2)
[2021-10-22 09:12] LABS: HEMOGLOBIN 16.5 G/dL (11.7-16.9); MCH 29.8 pg (25.7-33.7); MCHC 35.9 g/dl (32.0-35.9); MEAN PLT VOLUME 7.4 fl (7.5-11.1); PLATELET COUNT 290.5 10^3/uL (134-434); RBC 5.54 10^6/uL (4.00-5.60); RDW 13.7 % (11.9-15.9); WHITE BLOOD COUNT 5.8 10^3/uL (4.0-10.8)
[2021-10-22 09:22] VITALS: BP 116/70; PULSE 97; TEMP 97.8
== END 2021-10-22 09:30 | disposition home or self-care (01) ==
LOC: FECT 06:12
PROVIDERS: ATTEND Psychiatry & Neurology Psychiatry
PROC: GZB4ZZZ Other Electroconvulsive Therapy (ICD-10-PCS; principal; 2021-10-22 08:22)
DX: F31.9 Bipolar disorder, unspecified (principal)
CPT/HCPCS: 36415; 80053; 83735; 85025; 90870; 93005; 93010; 94760; C9803-CS; U0003; U0005

== ENCOUNTER 2021-10-27 05:55 | Day surgery (SDC) | payer OTHER ==
[2021-10-19 08:59] VITALS: BMI 41.3
[2021-10-27] MEDS ORDERED: KETAMINE HCL 500 MG/10 ML VIAL ONE (07:21)
[2021-10-27 08:34] VITALS: TEMP 97.8
[2021-10-27 08:44] VITALS: BP 116/72; PULSE 81
[2021-10-27] MEDS ORDERED: PROMETHAZINE HCL 25 MG/1 ML VIAL IVPUSH PRN (09:38)
[2021-10-27] MEDS ORDERED: ACETAMINOPHEN 500 MG TABLET (FP) PO PRN (09:38)
[2021-10-27] MEDS ORDERED: LACTATED RINGERS SOLUTION 1,000 ML IV SCH (09:45)
== END 2021-10-27 08:47 | disposition home or self-care (01) ==
LOC: FECT 05:55
PROVIDERS: ATTEND Psychiatry & Neurology Psychiatry
PROC: GZB4ZZZ Other Electroconvulsive Therapy (ICD-10-PCS; principal; 2021-10-27 07:33)
DX: F31.9 Bipolar disorder, unspecified (principal)
CPT/HCPCS: 90870; 94760; C9803-CS; U0003; U0005

== ENCOUNTER 2021-10-30 06:28 | Day surgery (SDC) | payer OTHER ==
[2021-10-22 15:56] VITALS: BMI 41.3
[2021-10-30 08:37] VITALS: TEMP 97.7
[2021-10-30 09:26] VITALS: BP 130/89; PULSE 79
== END 2021-10-30 09:30 | disposition home or self-care (01) ==
LOC: FECT 06:28
PROVIDERS: ATTEND Psychiatry & Neurology Psychiatry
PROC: GZB4ZZZ Other Electroconvulsive Therapy (ICD-10-PCS; principal; 2021-10-30 08:30)
DX: F31.9 Bipolar disorder, unspecified (principal)
CPT/HCPCS: 90870; 94760; C9803-CS; U0003; U0005

== ENCOUNTER 2021-11-03 05:51 | Day surgery (SDC) | payer OTHER ==
[2021-10-28 10:42] VITALS: BMI 41.3
[2021-11-03] MEDS ORDERED: KETAMINE HCL 500 MG/10 ML VIAL ONE (06:49)
[2021-11-03 07:53] VITALS: TEMP 97.8
[2021-11-03 07:58] VITALS: BP 133/81; PULSE 18
== END 2021-11-03 07:55 | disposition home or self-care (01) ==
LOC: FECT 05:51
PROVIDERS: ATTEND Psychiatry & Neurology Psychiatry
PROC: GZB4ZZZ Other Electroconvulsive Therapy (ICD-10-PCS; principal; 2021-11-03 07:02)
DX: F31.9 Bipolar disorder, unspecified (principal)
CPT/HCPCS: 90870; 94760; C9803-CS; U0003; U0005

== ENCOUNTER 2021-11-05 05:58 | Day surgery (SDC) | payer OTHER ==
[2021-10-28 14:45] VITALS: BMI 41.3
[2021-11-05 08:24] VITALS: TEMP 97.8
[2021-11-05 08:51] VITALS: BP 115/69; PULSE 81
[2021-11-05] MEDS ORDERED: LACTATED RINGERS SOLUTION 1,000 ML IV SCH (10:45)
== END 2021-11-05 08:45 | disposition home or self-care (01) ==
LOC: FECT 05:58
PROVIDERS: ATTEND Psychiatry & Neurology Psychiatry
PROC: GZB4ZZZ Other Electroconvulsive Therapy (ICD-10-PCS; principal; 2021-11-05 07:37)
DX: F31.9 Bipolar disorder, unspecified (principal)
CPT/HCPCS: 90870; 94760

== ENCOUNTER 2021-11-12 08:08 | Day surgery (SDC) | payer OTHER ==
[2021-11-06 09:20] VITALS: BMI 41.3
[2021-11-12 10:45] VITALS: TEMP 97.9
[2021-11-12 11:06] VITALS: BP 133/77; PULSE 88
== END 2021-11-12 11:10 | disposition home or self-care (01) ==
LOC: FECT 08:08
PROVIDERS: ATTEND Psychiatry & Neurology Psychiatry
PROC: GZB4ZZZ Other Electroconvulsive Therapy (ICD-10-PCS; principal; 2021-11-12 10:04)
DX: F31.9 Bipolar disorder, unspecified (principal)
CPT/HCPCS: 90870; 94760

== ENCOUNTER 2021-11-19 06:09 | Day surgery (SDC) | payer OTHER ==
[2021-11-02 15:19] VITALS: BMI 41.3
[2021-11-19] MEDS ORDERED: KETAMINE HCL 500 MG/10 ML VIAL ONE (07:18)
[2021-11-19] MEDS ORDERED: ACETAMINOPHEN INJECTION 100 ML IVPB ONE (07:44)
[2021-11-19] MEDS ORDERED: ACETAMINOPHEN 1000 MG/100 ML BAG IVPB ONE ×2 (07:50→08:07)
[2021-11-19] MEDS ORDERED: ONDANSETRON 4 MG/2 ML VIAL IVPUSH PRN (08:07)
[2021-11-19] MEDS ORDERED: LACTATED RINGERS SOLUTION 1,000 ML IV SCH (08:15)
[2021-11-19 08:18] VITALS: TEMP 98.7
[2021-11-19 08:40] VITALS: BP 113/60; PULSE 84
== END 2021-11-19 08:40 | disposition home or self-care (01) ==
LOC: FECT 06:09
PROVIDERS: ATTEND Psychiatry & Neurology Psychiatry
PROC: GZB4ZZZ Other Electroconvulsive Therapy (ICD-10-PCS; principal; 2021-11-19 07:30)
DX: F31.9 Bipolar disorder, unspecified (principal)
CPT/HCPCS: 90870; 94760

== ENCOUNTER 2021-12-04 07:10 | Day surgery (SDC) | payer OTHER ==
[2021-12-04 08:20] VITALS: BMI 39.0
[2021-12-04] MEDS ORDERED: KETAMINE HCL 500 MG/10 ML VIAL ONE (08:38)
[2021-12-04 10:27] VITALS: BP 117/78; PULSE 77; RESP 18; TEMP 97.5
== END 2021-12-04 09:58 | disposition home or self-care (01) ==
LOC: FECT 07:10
PROVIDERS: ATTEND Psychiatry & Neurology Psychiatry
PROC: GZB4ZZZ Other Electroconvulsive Therapy (ICD-10-PCS; principal; 2021-12-04 09:00)
DX: F32.A Depression, unspecified (principal)
CPT/HCPCS: 90870; 94760